=== PATIENT | male | born 1960 | race Caucasian/White ===

== ENCOUNTER 2019-10-12 11:12 | Emergency (ER) | payer OTHER, SELFPAY ==
[2019-10-12 11:15] VITALS: BP 108/61; PULSE 75; RESP 16; TEMP 37; O2SAT 92; BMI 26.8
--- NOTE | 2019-10-12 11:22 | ED.RN ---
CALL TO DROP SHIPMENT CLERK ALAYNA FOR CLARIFICATION OF NECESSITY OF DRUG SCREEN FOR WORK INJURY. DROP SHIPMENT CLERK STATES THAT NO TESTING IS REQUIRED AT THIS TIME.
--- NOTE | 2019-10-12 11:28 | EKG12_ITS ---
Test Reason : TRAUMA Blood Pressure : / mmHG Vent. Rate : 066 BPM Atrial Rate : 066 BPM P-R Int : 170 ms QRS Dur : 086 ms QT Int : 396 ms P-R-T Axes : 074 061 046 degrees QTc Int : 415 ms Normal sinus rhythm with sinus arrhythmia Normal ECG Confirmed by JOSE ROBERTO JOHNSON ([id number]), food editor BRIAN SIFUENTES ([id number]) on 10/15/2019 11:54:51 AM Referred By: JOSE CARLOS Confirmed By:JOSE ROBERTO JOHNSON
--- NOTE | 2019-10-12 11:29 | CT_ITS ---
STUDY: CT CERVICAL SPINE WITHOUT CONTRAST REASON FOR EXAM: Male, 59 years old. CRUSH INJURY TO LT UPPER CHEST/DUMPSTER FELL ON PATIENT RADIATION DOSAGE (If Supplied By Facility): CTDIvol = ( 23.34 ) mGy, DLP = ( 438.64 ) mGycm TECHNIQUE: High resolution transaxial imaging was performed without contrast material. Sagittal and coronal images were reconstructed. Individualized dose optimization techniques were used for this CT. COMPARISON: None FINDINGS: Normal craniovertebral junction. Normal anterior atlantoaxial articulation. Normal odontoid process. Normal cervical lordosis. Normal vertebral bodies and posterior osseous elements. C2-3: Normal endplates. Normal disc height and morphology. Normal central canal and intervertebral neuroforamina. C3-4: Normal endplates. Normal disc height and morphology. Normal central canal and intervertebral neuroforamina. C4-5: Normal endplates. Normal disc height and morphology. Normal central canal and intervertebral neuroforamina. C5-6: Moderate degree of disc space narrowing with the spondylosis. Uncovertebral arthrosis and facet joint osteoarthritis and hypertrophy with bilateral neural foraminal stenosis worse on the right side. C6-7: Moderate degree of disc space narrowing with spondylosis. Mild degree of bilateral neural foraminal stenosis. C7-T1: Normal endplates. Normal disc height and morphology. Normal central canal and intervertebral neuroforamina. Normal visualized soft tissue structures. CT/Spine Cervical without Contras IMPRESSION: Multilevel degenerative changes, as described above. Electronically Signed: Diogenes Esposito, at 12:23 EDT , Service support ,
--- NOTE | 2019-10-12 11:29 | CT_ITS ---
STUDY: CT BRAIN WITHOUT CONTRAST REASON FOR EXAM: Male, 59 years old. CRUSH INJURY TO LT UPPER CHEST/DUMPSTER FELL ON PATIENT RADIATION DOSAGE (If Supplied By Facility): CTDIvol = ( 44.99 ) mGy, DLP = ( 762.36 ) mGycm TECHNIQUE: Transaxial CT imaging of the brain was performed without administration of intravenous contrast material. Individualized dose optimization techniques were used for this CT. COMPARISON: No relevant priors. FINDINGS: Normal soft tissue structures. Normal calvarium. Normal size ventricles and extra-axial spaces for the patient''s age. Normal white matter tracts of the cerebral hemispheres. Normal basal ganglia and thalami. Normal brainstem. Normal cerebellum. There is no intracranial hemorrhage. There are no findings of an acute ischemic infarction. Normal visualized paranasal sinuses. CT/Brain/Head without Contrast IMPRESSION: Normal unenhanced CT scan of the brain. Electronically Signed: Diogenes Esposito, at 12:21 EDT , Service support ,
--- NOTE | 2019-10-12 11:29 | CT_ITS ---
STUDY: CT CHEST WITHOUT CONTRAST REASON FOR EXAM: Male, 59 years old. CRUSH INJURY TO LT UPPER CHEST/DUMPSTER FELL ON PATIENT RADIATION DOSAGE (If Supplied By Facility): CTDIvol = ( 17.33 ) mGy, DLP = ( 562.86 ) mGycm TECHNIQUE: Transaxial imaging was performed without the administration of intravenous contrast material. Multiplanar coronal and sagittal images were reformatted. Individualized dose optimization techniques were used for this CT. COMPARISON: None. FINDINGS: Mild degree of increased interstitial markings in the upper and lower lobes suggestive of a scarring. Mild increased markings at the lung bases slightly more prominent on the left side with possible pulmonary contusion. Normal heart and pericardium. There are multiple small lymph nodes within the mediastinum, which are normal in size and morphology most compatible with reactive lymph hyperplasia. Normal hilar regions. Normal unenhanced pulmonary arteries. Normal aorta arch and descending thoracic aorta. Nondisplaced fractures of the posterior aspect of the right and left first ribs as well as nondisplaced fracture involving the anterolateral aspect of the left fifth and sixth ribs. There is also evidence of a nondisplaced fracture involving the posterior aspect of the left ninth and 10th ribs. Small hiatal hernia. CT/Chest without Contrast IMPRESSION: Nondisplaced multiple left rib fractures as described as well as the posterior aspect of the right and left first ribs. Findings suggestive of a pulmonary scarring and possible mild contusion at the left lung base. Electronically Signed: Diogenes Esposito, at 12:34 EDT , Service support ,
--- NOTE | 2019-10-12 11:30 | ED.VIS.INJ ---
History of Present Illness Chief Complaint: Trauma Informant: Patient Onset: Today Mechanism/Context: Work Related Quality of Pain: Stabbing Associated Symptoms: Negative for: Loss of consciousness, Amnesia Narrative: Patient is a 59-year-old male with history of coronary artery disease presenting after top of a dumpster fell on him. It pinned him to the ground and landed on his left shoulder. EMS was called and he was transferred to the emergency room. C-collar was placed and patient was given 50 mcg of fentanyl prior to arrival. Patient is complaining of significant pain in his left shoulder and left ribs. He states he has pain when he takes a deep breath. He denies any difficulty breathing. States he has some slight pain in his neck. He states he did not hit his head. He denies any loss of consciousness. He denies any pain in his lower abdomen, hips or legs. He denies any other injuries. Denies any associated numbness or tingling. Patient is not sure if he is on anticoagulation because he had stents or not. 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 Patient admits to occasional alcohol use and regular tobacco use. He denies any illicit drug use. She was last tetanus was but thinks it was years ago. Tetanus Immunization: Unknown Past Medical History - Allergies and Home Meds Allergies/Adverse Reactions: Allergies Penicillins Allergy (Verified 10/12/19 11:24) PT UNSURE OF REACTION Past Medical History: - - Hypertension, coronary artery disease Smoking Status: Unknown if ever smoked Review of Systems General: Denies: Chills, Fever, Sweats Eyes: Denies: Visual changes - bilaterally, Diplopia ENT: Denies: Rhinorrhea, Sore throat Cardiovascular: Reports: Chest pain - Left chest wall pain. Denies: Palpitations Respiratory: Denies: Dyspnea, Cough, Dyspnea on exertion Gastrointestinal: Denies: Abdominal pain, Nausea, Vomiting, Diarrhea, Melena, Hematochezia Genitourinary: Denies: Dysuria, Hematuria, Frequency Musculoskeletal: Reports: Extremity Pain - Left shoulder. Denies: Back pain Skin: Denies: Rash, Wounds Neurological: Denies: Headache, Weakness, Numbness Physical Exam Vital Signs/Narrative: Vital Signs Temp Pulse Resp BP Pulse Ox 10/12/19 11:15 98.6 F 75 16 108/61 92 Inital Vital Signs reviewed: Yes General: Well nourished, Well developed Head: Normocephalic, Atraumatic Eyes: Perrl, EOMI ENT: TM's clear, No hemotympanum or drainage, No trauma Neck: - - C-collar in place. Patient does have some midline tenderness of the lower C-spine. Range of motion is not tested. No step-off sign appreciated. Cardiovascular: Regular rate, Regular rhythm, No murmurs Respiratory: No distress, CTA bilaterally, Chest tenderness - Left anterior upper and mid chest wall, no flail chest appreciated. No chest wall crepitus.. Negative for: Decreased Air Movement Abdomen: Soft, Nontender, Nondistended, Normal bowel sounds Back: Nontender Extremeties: Pelvis is stable. Lower extremities are nontender with equal length and symmetric. Left shoulder has mild deformity but the joint space appears to be intact. Tenderness palpation of the shoulder as well as the clavicle. No deformity or tenderness palpation of the lower arm. 2 Plus bilateral radial pulses. Skin: No rash, Trauma - Abrasions to the left shoulder and left chest wall. No ecchymosis noted. Neurological: Alert, Oriented x3, Cranial nerves II-XII grossly intact, Normal Strength, Normal Sensation Psychological: Normal affect - Glascow Coma Scale Eye Opening: Spontaneous Motor: Obeys Commands Verbal: Oriented Coma Scale Total: 15 Diagnostic/Tx/Re-eval Clinical Impression(s) from Imaging Studies Brain CT 10/12/19 11:29 IMPRESSION: Normal unenhanced CT scan of the brain. Electronically Signed: Diogenes Esposito, at 12:21 EDT , Service support , Cervical Spine CT 10/12/19 11:29 IMPRESSION: Multilevel degenerative changes, as described above. Electronically Signed: Diogenes Esposito, at 12:23 EDT , Service support , Chest CT 10/12/19 11:29 IMPRESSION: Nondisplaced multiple left rib fractures as described as well as the posterior aspect of the right and left first ribs. Findings suggestive of a pulmonary scarring and possible mild contusion at the left lung base. Electronically Signed: Diogenes Esposito, at 12:34 EDT , Service support , Shoulder X-Ray 10/12/19 11:56 IMPRESSION: Questionable nondisplaced fractures involving the left seventh and eighth ribs. Electronically Signed: Diogenes Esposito, at 12:25 EDT , Service support , Laboratory Data 10/12/19 10/12/19 10/12/19 11:18 11:18 11:18 WBC 7.4 RBC 4.81 Hgb 15.7 Hct 47.3 MCV 98.3 H MCH 32.6 H MCHC 33.2 RDW Std Deviation 46.8 H RDW Coeff of Krissy 12.9 Plt Count 229 MPV 10.0 Immature Gran % (Auto) 0.800 Neut % (Auto) 64.3 Lymph % (Auto) 24.7 [place] % (Auto) 5.0 Eos % (Auto) 4.3 Baso % (Auto) 0.9 Absolute Neuts (auto) 4.8 Absolute Lymphs (auto) 1.83 Nucleated RBC % 0 PT 12.9 INR 1.0 APTT 25.8 Sodium 140 Potassium 5.0 Chloride 108 H Carbon Dioxide 27.0 Anion Gap 5 BUN 18 Creatinine 1.04 Estim Creat Clear Calc 76.48 Est GFR (MDRD) Af Amer 94 Est GFR (MDRD) Non-Af 78 BUN/Creatinine Ratio 17.3 Glucose 100 Calcium 9.1 - Rhythm Strip Rhythm Strip: Sinus Rhythm Rate: 66 Ectopy: None - EKG Initial EKG Interpretation: Sinus Rhythm, - - Sinus rhythm with sinus arrhythmia at a rate of [address] segments - Medical Decision Making Evaluated as a trauma. Patient had the top of a industrial garbage can fall on top of him. It pinned him to the ground. Patient is complaining of significant left-sided chest wall and shoulder pain. He is in a c-collar. He is hemodynamically stable in the emergency room. Limited trauma work-up is obtained including head CT, C-spine and CT of the chest. Patient is found to have multiple bilateral rib fractures including bilateral first rib fractures. No signs of pneumothorax at this time. Patient is given multiple doses of medication for pain control. His tetanus is updated. This is stable he is not seem to have any injury of his lower extremities or abdomen. Patient does not have midline tenderness and CT spine is cleared after imaging is performed. Given patient numerous rib fractures especially the first rib fractures I feel that patient would benefit from a trauma evaluation and likely admission for pain control[place] transfer to [facility] for trauma evaluation. Patient is accepted by Dr. Minoo Jung the ER. Patient is agreeable with plan of care. He stable at time of disposition. ED Disposition - Plan for ED Patient: Disposition: [facility] Diagnosis: Multiple fractures of ribs, bilateral, initial encounter for closed fracture, Trauma, Need for tetanus booster
--- NOTE | 2019-10-12 11:34 | NURSING ---
NO OLD EKGS
[2019-10-12 11:40] LABS: Absolute Lymphocyte Count 1.83 X10^3/uL (0.83-4.51); Absolute Neutrophil Count 4.8 X10^3/uL (2.0-7.7); Basophil# 0.07 X10^3/uL; Basophil% 0.9 % (0-1); Eosinophil# 0.32 X10^3/uL; Eosinophils% 4.3 % (0-5); Hematocrit 47.3 % (40-54); Hemoglobin 15.7 g/dL (13.0-16.5); Lymphocyte # 1.83 X10^3/ul (4.0); Lymphocyte % 24.7 % (19-41); Mean Corp Hgb Conc 33.2 g/dL (32-36); Mean Corpuscular Hgb 32.6 pg (27.0-32.0); Mean Corpuscular Volume 98.3 fL (80-94); Monocyte# 0.37 X10^3/uL; NRBC Flagged by Analyzer 0 % (0-5); Neutrophil # 4.77 X10^3/uL (2.7-7.7); Neutrophil % 64.3 % (47-70); Platelet Count 229 K/mm3 (150-450); RBC Distribution Width CV 12.9 % (11.6-14.6); RBC Distribution Width SD 46.8 fl (35.1-43.9); Red Blood Count 4.81 M/mm3 (4.6-6.2); White Blood Count 7.4 K/mm3 (4.4-11.0)
[2019-10-12 11:48] LABS: Prothrombin Time (Protime)PT. 12.9 SECONDS (11.7-14.9)
[2019-10-12 11:49] LABS: Partial Thromboplast Time 25.8 Seconds (24.1-36.2)
--- NOTE | 2019-10-12 11:56 | RAD_ITS ---
STUDY: X-RAY - LEFT SHOULDER REASON FOR EXAM: Male, 59 years old. CRUSH INJURY TO LEFT SHOULDER/UPPER LEFT CHEST. FULL DUMPSTER FELL ON PT. TECHNIQUE: 2 view(s) of the shoulder. COMPARISON: None. FINDINGS: Normal glenohumeral articulation. Normal acromioclavicular joint. Normal acromion. Normal humeral head and visualized proximal humerus. The soft tissue structures are unremarkable. IMPRESSION: Nondisplaced fractures involving the left seventh and eighth ribs. RAD/Shoulder min 2 Views IMPRESSION: Questionable nondisplaced fractures involving the left seventh and eighth ribs. Electronically Signed: Diogenes Esposito, at 12:25 EDT , Service support ,
[2019-10-12 11:58] LABS: Anion Gap 5 (5-15); BUN 18 mg/dL (7-18); BUN/Creat Ratio 17.3 RATIO (10-20); Calcium,Total 9.1 mg/dL (8.5-10.1); Chloride 108 mmol/L (98-107); Creatinine, Serum 1.04 mg/dL (0.70-1.30); EST Glomerular Filtration Rate 78 mL/min (>60); Est Glom Filt Rate - Afr Amer 94 mL/min (>60); Estimated Creatinine Clearance 76.48 ml/min; Glucose 100 mg/dL (74-106); Sodium Level 140 mmol/L (136-145)
[2019-10-12] MEDS: Diphth,Pertuss(Acell),Tet Vac 0.5 ML Vial IM (12:07)
[2019-10-12] MEDS: fentaNYL 100 MCG/2 ML Ampul 50 MCG IV (12:08)
[2019-10-12] MEDS: Ondansetron 4 MG/2 ML Vial IV (12:08)
[2019-10-12 12:15] VITALS: BP 107/62; PULSE 76; RESP 18; O2SAT 92
[2019-10-12] MEDS: 0.9% Normal Saline 1,000 ML 999 ML IV (12:15)
[2019-10-12 13:24] VITALS: BP 119/58; PULSE 77; RESP 13; O2SAT 96
[2019-10-12] MEDS: HYDROmorphone 0.5 MG/0.5 ML SYRINGE IV ×2 (14:00→16:07)
--- NOTE | 2019-10-12 14:02 | NURSING ---
CALLED [facility] FOR TRAUMA TRANSFER
--- NOTE | 2019-10-12 14:08 | ED.RN ---
PT AWARE OF TRANSFER TO [facility] ER BY VEHICLE TRANSPORT. NO REPORT NEEDS TO BE CALLED PER DR. MCGEE. PT'S VITAL STABLE AT THIS TIME. RN WILL CONTINUE MONITOR.
[2019-10-12 15:45] VITALS: BP 95/60; PULSE 72; RESP 16; O2SAT 96
== END 2019-10-12 16:15 | disposition short-term general hospital (02) ==
PROVIDERS: Emergency Provider Emergency Medicine
DX: S22.43XA Multiple fractures of ribs, bilateral, initial encounter for closed fracture (principal); S40.212A Abrasion of left shoulder, initial encounter; S20.312A Abrasion of left front wall of thorax, initial encounter; Z23 Encounter for immunization; W23.0XXA Caught, crushed, jammed, or pinched between moving objects, initial encounter; Y93.9 Activity, unspecified; Y92.9 Unspecified place or not applicable; I25.10 Atherosclerotic heart disease of native coronary artery without angina pectoris; Z72.0 Tobacco use
CPT/HCPCS: 70450; 71250; 72125; 73030; 80048; 85025; 85610; 85730; 90715; 93005; 96361; 96374; 96375; 96376; 99285; J7030; A4216; J2405